=== PATIENT | female | born 1985 | race Two or more races ===

== ENCOUNTER 2020-08-10 17:02 | Inpatient (IN) | payer MEDICAID ==
[~2020-08-10] VITALS: Ht 165.1 cm; Wt 95.5 kg
[~2020-08-10 17:02] MED LIST: MORPHINE SULFATE 4 MG/ML VIAL. IV PRN
[2020-08-10 17:22] LABS: BILIRUBIN,URINE NEGATIVE (NEG); CLARITY,URINE CLEAR; COLOR,URINE YELLOW; NITRITE,URINE NEGATIVE (NEG); PROTEIN,URINE NEGATIVE (NEG-TRACE); UROBILINOGEN,URINE 0.2 mg/dL (0.2 mg/dL)
[2020-08-10 17:34] LABS: BACTERIA,URINE MODERATE /HPF (0-FEW)
[2020-08-10 17:41] LABS: BASO % 1 % (0-3); EOS # 0.1 x10^3/uL (0.0-0.7); EOS % 1 % (0-3); HEMATOCRIT 37.6 % (36.0-47.0); HEMOGLOBIN 12.5 g/dL (12.0-15.5); LYMPH # 2.2 x10^3/uL (1.0-4.8); LYMPH % 30 % (24-48); MEAN CORPUSCULAR HEMOGLOBIN 27 pg (25-35); MEAN CORPUSCULAR HGB CONC 33 g/dL (31-37); MEAN CORPUSCULAR VOLUME 82 fL (79-100); MONO # 0.4 x10^3/uL (0.0-1.1); MONO % 5 % (0-9); NEUT # 4.5 x10^3/uL (1.8-7.7); NEUT % 63 % (31-73); PLATELET COUNT 300 x10^3/uL (140-400); RED BLOOD COUNT 4.61 x10^6/uL (3.50-5.40); RED CELL DISTRIBUTION WIDTH 13.3 % (11.5-14.5); WHITE BLOOD COUNT 7.2 x10^3/uL (4.0-11.0)
--- NOTE | 2020-08-10 17:42 | PHYS DOC ---
General Adult EDM: Chief Complaint: ABDOMINAL PAIN HPI: HPI: Patient is a 35 year old female who presents with right upper quadrant burning throbbing type pain that wraps around to her back since this past Monday. She states that her pain is an 8 out of 10 at this time. He states that when she takes a deep breath that she has pain in that epigastric area which would make her short of breath sometimes. She states that it only she vomited up green bile and with bitter tasting. She states since then she has been eating and drinking appropriately. She states that her appetite is less than because she is not hungry. She states today she ate a couple small apples and that was all. She denies anything making her pain worse or better. She states she has had gastritis in the past and has been taking Protonix. Patient denies any surgeries or past medical history other than gastritis. She states she does not smoke, drink alcohol or do any drugs. Patient denies chest pain, diarrhea, constipation, fever, chills, body aches, cough, nasal congestion, urinary symptoms, headache, dizziness, focal weakness, numbness or tingling. Review of Systems: Review of Systems: Constitutional: Denies fever or chills. [] Eyes: Denies change in visual acuity. [] HENT: Denies nasal congestion or sore throat. [] Respiratory: Denies cough. + Pain causing shortness of breath. [] Cardiovascular: Denies chest pain or edema. [] GI: + abdominal pain, +nausea, +vomiting, denies bloody stools or diarrhea. [] : Denies dysuria. [] Musculoskeletal: + Right back pain or denies joint pain. [] Integument: Denies rash. [] Neurologic: Denies headache, focal weakness or sensory changes. [] Endocrine: Denies polyuria or polydipsia. [] Lymphatic: Denies swollen glands. [] Psychiatric: Denies depression or anxiety. [] Heart Score: Risk Factors: Risk Factors: DM, Current or recent (<one month) smoker, HTN, HLP, family history of CAD, obesity. Risk Scores: Score 0 - 3: 2.5% MACE over next 6 weeks - Discharge Home Score 4 - 6: 20.3% MACE over next 6 weeks - Admit for Clinical Observation Score 7 - 10: 72.7% MACE over next 6 weeks - Early Invasive Strategies Current Medications: Current Medications Medications (Trade) Dose Ordered Sig/Monet Start Time Stop Time Status Last Admin Dose Admin Famotidine (Pepcid Vial) 20 mg 1X ONCE 08/10/20 17:45 08/10/20 17:46 UNV Fentanyl Citrate (Fentanyl 2ml Vial) 50 mcg 1X ONCE 08/10/20 17:45 08/10/20 17:46 UNV Ondansetron HCl (Zofran) 4 mg 1X ONCE 08/10/20 17:45 08/10/20 17:46 UNV Sodium Chloride 1,000 ml @ 1,000 mls/hr Q1H 08/10/20 17:45 08/10/20 18:44 UNV Allergies: Allergies: Allergies Coded Allergies Type Severity Reaction Last Updated Verified iodine Allergy Unknown 08/10/20 Yes Physical Exam: PE: Constitutional: Well developed, well nourished, no acute distress, non-toxic appearance. [] HENT: Normocephalic, atraumatic, bilateral external ears normal, oropharynx moist, no oral exudates, nose normal. [] Eyes: PERRLA, EOMI, conjunctiva normal, no discharge. [] Neck: Normal range of motion, no tenderness, supple, no stridor. [] Cardiovascular:Heart rate regular rhythm, no murmur [] Lungs & Thorax: Bilateral breath sounds clear to auscultation [] Abdomen: Bowel sounds normal, soft, epigastric and right upper quadrant tendern ess, no masses, no pulsatile masses. [] Skin: Warm, dry, no erythema, no rash. [] Back: No tenderness, no CVA tenderness. [] Extremities: No tenderness, no cyanosis, no clubbing, ROM intact, no edema. [] Neurologic: Alert and oriented X 3, normal motor function, normal sensory function, no focal deficits noted. [] Psychologic: Affect normal, judgement normal, mood normal. [] Current Patient Data: Labs: Laboratory Tests Test 08/10/20 17:16 08/10/20 17:17 Urine Collection Type Unknown Urine Color Yellow Urine Clarity Clear Urine pH 6.0 (<5.0-8.0) Urine Specific [place] 1.020 (1.000-1.030) Urine Protein Negative mg/dL (NEG-TRACE) Urine Glucose (UA) Negative mg/dL (NEG) Urine Ketones (Stick) Negative mg/dL (NEG) Urine Blood Negative (NEG) Urine Nitrite Negative (NEG) Urine Bilirubin Negative (NEG) Urine Urobilinogen Dipstick 0.2 mg/dL (0.2 mg/dL) Urine Leukocyte Esterase Small (NEG) Urine RBC 1-2 /HPF (0-2) Urine WBC 5-10 /HPF (0-4) Urine Squamous Epithelial Cells Mod /LPF Urine Bacteria Moderate /HPF (0-FEW) Urine Mucus Marked /LPF POC Urine HCG, Qualitative Hcg negative (Negative) EKG: EKG: [] Radiology/Procedures: Radiology/Procedures: [] Impression: [address] [address] IMAGING REPORT Signed PATIENT: ENOCH MULLEN AACCOUNT: [id number] : 1985 LOCATION: ER AGE: 35 SEX: F EXAM STATUS: REG ER ORD. PHYSICIAN: VIDA ELLSWORTH APRN REASON: SOA PROCEDURE: PORTABLE CHEST 1V Chest AP portable at 1743: Reason for examination: Short of breath. The heart size is normal. Mediastinum is unremarkable. Lung angelo are clear. No acute bony abnormalities are seen. Impression: No acute cardiopulmonary disease. Electronically signed by: Madelin Olson MD (08/10/2020 5:47 PM) [facility] DICTATED and SIGNED BY: MADELIN OLSON MD DATE: 08/10/20 [id number] [address] IMAGING REPORT Signed PATIENT: ENOCH MULLEN AACCOUNT: [id number] : 1985 LOCATION: ER AGE: 35 SEX: F EXAM STATUS: REG ER ORD. PHYSICIAN: VIDA ELLSWORTH APRN REASON: VOMITING, UPPER ABD PAIN THAT WRAPS AROUND TO BACK PROCEDURE: CT ABDOMEN PELVIS WO CONTRAST EXAM: CT Abdomen and Pelvis without IV contrast CLINICAL HISTORY: VOMITING, UPPER ABD PAIN THAT WRAPS AROUND TO BACK COMPARISON: none TECHNIQUE: Helical CT of the abdomen and pelvis without intravenous contrast. Axial, coronal and sagittal reformatted images were generated. PQRS compliance statement - One or more of the following individualized dose reduction techniques were utilized for this study: 1. Automated exposure control 2. Adjustment of the mA and/or kV according to patient size 3. Use of iterative reconstruction technique FINDINGS: Lack of intravenous contrast limits evaluation of solid organs, vasculature, and lymph nodes. Lower chest: Lung bases are clear. Abdomen and Pelvis: No focal liver lesion. There is gallbladder wall thickening with pericholecystic infiltration and calcified gallstones suspicious for acute cholecystitis. No biliary ductal dilatation. Spleen is unremarkable. Adrenal glands and pancreas are unremarkable. Punctate nonobstructing right lower pole renal calculus. No focal renal lesion. No hydronephrosis. IUD is seen within the uterus. Uterus and adnexa are otherwise grossly unremarkable. Appendix is normal. No small or large bowel dilatation. Moderate colonic stool content. No abdominal or pelvic ascites. No abdominal or pelvic lymphadenopathy. Bones: No aggressive osseous lesion is seen. IMPRESSION: 1. Cholelithiasis with gallbladder wall thickening and pericholecystic infiltration suspicious for acute cholecystitis. 2. Punctate nonobstructing right lower pole renal calculus. 3. No bowel obstruction. No ascites. Electronically signed by: Natan Espinoza MD (08/10/2020 6:13 PM) [facility] DICTATED and SIGNED BY: NATAN ESPINOZA MD DATE: 08/10/20 [id number] 0 [facility] [address] [place] [address] IMAGING REPORT Signed PATIENT: ENOCH MULLEN AACCOUNT: [id number] : 1985 LOCATION: [address] [place] [address] AGE: 35 SEX: F EXAM STATUS: ADM IN ORD. PHYSICIAN: VIDA ELLSWORTH APRN REASON: GALL BLADDER, ABNORMAL CT PROCEDURE: ABDOMEN LTD Abdominal ultrasound Limited: Reason for examination: Right upper quadrant pain with abnormal gallbladder on CT examination. Pancreas is poorly visualized. The liver shows bile fatty infiltration without definite focal lesion seen and measures 16.2 cm in greatest dimension. Gallbladder shows cholelithiasis with wall thickening measuring up to 4.6 mm. There is a small amount of pericholecystic fluid present and positive [place] sign. Common bile duct measures 6.7 mm diameter. Right kidney measures 12 x 4.8 x 4.7 cm in greatest dimension with good cortical medullary differentiation and there appear to be nonobstructing renal calculi present. No abnormality seen at the inferior vena cava. IMPRESSION: Cholelithiasis with gallbladder wall thickening, pericholecystic fluid and positive [place] sign. Common bile duct is upper normal at 6.7 mm. Nonobstructing calculi in the right kidney. Electronically signed by: Madelin Olson MD (08/10/2020 7:30 PM) [facility] Course & Med Decision Making: Course & Med Decision Making Pertinent Labs and Imaging studies reviewed. (See chart for details) See HPI. Alert and oriented x4. Speaks in full clear sentences. Abdomen is soft but tender to the epigastric and right upper abdomen area. No CVA tenderness. Skin pink warm and dry. Ambulatory with a steady gait. Afebrile. I have spoken to Dr Aden concerning this patient and CT/ US findings. Patient is started on Ancef and Flagyl. A rapid Covid is done on her. She is admitted to Dr. Benitez. [] Odilia Disclaimer: Odilia Disclaimer: This electronic medical record was generated, in whole or in part, using a voice recognition dictation system. Departure Departure Impression: Primary Impression: Cholecystitis Disposition: ADMITTED INPT THIS HOSP Admitting Physician: YORDY Condition: STABLE Referrals: NO PCP (PCP) VIDA ELLSWORTH APRN Aug 10, 2020 17:42
[2020-08-10] MEDS ORDERED: fentaNYL PF VIAL 100 MCG/2 ML VIAL IVP ONE (17:45)
[2020-08-10] MEDS ORDERED: FAMOTIDINE 20 MG/2 ML VIAL IVP ONE (17:45)
[2020-08-10] MEDS ORDERED: ONDANSETRON PF 4 MG/2 ML VIAL. IVP ONE (17:45)
[2020-08-10] MEDS ORDERED: IV NORMAL SALINE 1000ML BAG 1,000 ML IV SCH (17:45)
[2020-08-10 17:49] LABS: CALCIUM 9.8 mg/dL (8.5-10.1); CREATININE 0.7 mg/dL (0.6-1.0); GFR 96.4; POTASSIUM 3.5 mmol/L (3.5-5.1)
--- NOTE | 2020-08-10 17:50 | RAD ---
Chest AP portable at 1743: Reason for examination: Short of breath. The heart size is normal. Mediastinum is unremarkable. Lung angelo are clear. No acute bony abnormali ties are seen. Impression: No acute cardiopulmonary disease. Electronically signed by: Aurea Alvarez MD (08/10/2020 5:47 PM) [facility]
[2020-08-10 17:55] LABS: ALBUMIN/GLOBULIN RATIO 0.9 (1.0-1.7); TOTAL BILIRUBIN 0.3 mg/dL (0.2-1.0); TOTAL PROTEIN 8.3 g/dL (6.4-8.2)
--- NOTE | 2020-08-10 18:15 | RAD ---
EXAM: CT Abdomen and Pelvis without IV contrast CLINICAL HISTORY: VOMITING, UPPER ABD PAIN THAT WRAPS AROUND TO BACK COMPARISON: none TECHNIQUE: Helical CT of the abdomen and pelvis without intravenous contrast. Axial, coronal and sagi ttal reformatted images were generated. PQRS compliance statement - One or more of the following individualized dose reduction techniques wer e utilized for this study: 1. Automated exposure control 2. Adjustment of the mA and/or kV according to patient size 3. Use of iterative reconstruction technique FINDINGS: Lack of intravenous contrast limits evaluation of solid organs, vasculature, and lymph nodes. Lower chest: Lung bases are clear. Abdomen and Pelvis: No focal liver lesion. There is gallbladder wall thickening with pericholecystic infiltration and can cified gallstones suspicious for acute cholecystitis. No biliary ductal dilatation. Spleen is unremar kable. Adrenal glands and pancreas are unremarkable. Punctate nonobstructing right lower pole renal calculus. No focal renal lesion. No hydronephrosis. IUD is seen within the uterus. Uterus and adnexa are otherwise grossly unremarkable. Appendix is normal. No small or large bowel dilatation. Moderate colonic stool content. No abdominal or pelvic ascites. No abdominal or pelvic lymphadenopathy. Bones: No aggressive osseous lesion is seen. IMPRESSION: 1. Cholelithiasis with gallbladder wall thickening and pericholecystic infiltration suspicious for a cute cholecystitis. 2. Punctate nonobstructing right lower pole renal calculus. 3. No bowel obstruction. No ascites. Electronically signed by: Natan Hicks MD (08/10/2020 6:13 PM) [facility]
--- NOTE | 2020-08-10 18:38 | PDOC1 ---
History and Physical Date of Service: DOS: DATE: 08/10/20 TIME: 18:34 Chief Complaint: Chief Complain: ABD PAIN History of Present Illness: HPI: 35 year old female who presents with right upper quadrant burning throbbing type pain that wraps around to her back since this past Monday. She states that her pain is an 8 out of 10 at this time. He states that when she takes a deep breath that she has pain in that epigastric area which would make her short of breath sometimes. She states that it only she vomited up green bile and with bitter tasting. She states since then she has been eating and drinking appropriately. She states that her appetite is less than because she is not hungry. She states today she ate a couple small apples and that was all. She denies anything making her pain worse or better. She states she has had gastritis in the past and has been taking Protonix. Patient denies any surgeries or past medical history other than gastritis. She states she does not smoke, drink alcohol or do any drugs. Patient denies chest pain, diarrhea, constipation, fever, chills, body aches, cough, nasal congestion, urinary symptoms, headache, dizziness, focal weakness, numbness or tingling. Past Medical/Surgical History: PMH/PSH: No surgical or medical Hx Allergies: Allergies: Coded Allergies: iodine (Verified Allergy, Intermediate, 08/10/20) Family History: Family History: Reviewed with no relevant findings Social History: Social History: Denies EtOH, tobacco, or drug abuse. Current Medications: Current Medications Current Medications Sodium Chloride 1,000 ml @ 1,000 mls/hr Q1H IV Last administered on 08/10/20at 17:49; Start 08/10/20 at 17:45; Stop 08/10/20 at 18:44 Fentanyl Citrate (Fentanyl 2ml Vial) 50 mcg 1X ONCE IVP Last administered on 08/10/20at 17:49; Start 08/10/20 at 17:45; Stop 08/10/20 at 17:46; Status DC Ondansetron HCl (Zofran) 4 mg 1X ONCE IVP Last administered on 08/10/20at 17:49; Start 08/10/20 at 17:45; Stop 08/10/20 at 17:46; Status DC Famotidine (Pepcid Vial) 20 mg 1X ONCE IVP Last administered on 08/10/20at 17:49; Start 08/10/20 at 17:45; Stop 08/10/20 at 17:46; Status DC Cefazolin Sodium/ Dextrose 50 ml @ 100 mls/hr 1X ONCE IV ; Start 08/10/20 at 18:30; Stop 08/10/20 at 18:59 Metronidazole 100 ml @ 100 mls/hr 1X ONCE IV ; Start 08/10/20 at 18:30; Stop 08/10/20 at 19:29 ROS: Review of Systems Review of System REVIEW OF SYSTEMS: GENERAL: Denies weakness SKIN: No bruising, hair changes or rashes. EYES: No blurred, double or loss of vision. NOSE AND THROAT: No history of nosebleeds, hoarseness or sore throat. HEART: No history of palpitations, chest pain or shortness of breath on exertion. LUNGS: Denies cough, hemoptysis, wheezing or shortness of breath. GASTROINTESTINAL: Denies changes in appetite, nausea, vomiting, diarrhea or constipation. GENITOURINARY: No history of frequency, urgency, hesitancy or nocturia. NEUROLOGIC: Denies history of numbness, tingling, or tremor. PSYCHIATRIC: No history of panic, anxiety or depression. ENDOCRINE: No history of heat or cold intolerance, polyuria or polydipsia. EXTREMITIES: Denies joint pain, pain on walking or stiffness. Physical Exam: Vital Signs: Vital Signs Date Time Temp Pulse Resp B/P (MAP) Pulse Ox O2 Delivery O2 Flow Rate FiO2 08/10/20 17:49 16 98 08/10/20 17:36 99.2 88 133/73 (93) Room Air 99.2 Physcial Exam: GEN: No apparent distress. Alert and oriented HEENT: Normal cephalic, atraumatic, external auditory canals are patent EYES: Extraocular muscles are intact, pupil are equally round and reactive to light and accommodation MUSCULOSKELETAL: Well developed , well nourished, good range of motion ENDOCRINE: No thyromegaly was palpated LYMPHATICS: No cervical chain or axillary nodes were noted HEMATOPOIETIC: No bruising NECK: Supple, no JVD, no thyromegaly was noted LUNGS: Clear to auscultation in all lung angelo without rhonchi or wheezing HEART: RRR, S!, S2 present. Peripheral pulses intact, no obvious murmurs noted ABDOMEN: Soft, RUQ tenderness. Positive agosto's sign. Positive bowel sounds, no organomegaly, normal bowel sounds EXTREMITIES: Without clubbing, cyanosis, or edema. Pedal pulses intact. Negative Homans sign NEUROLOGIC: Normal speech and tone. A&O x 3, moves all extremities, no obvious focal deficits PSYCHIATRIC: Normal affect, normal mood. Stable SKIN: No ulcerations or rashes, good skin turgor, no jaundice VASCULAR: Good capillary refill, neurovascular bundle appears to be intact Labs: Labs: Laboratory Tests Test 08/10/20 17:16 08/10/20 17:17 08/10/20 17:30 Urine Collection Type Unknown Urine Color Yellow Urine Clarity Clear Urine pH 6.0 (<5.0-8.0) Urine Specific [place] 1.020 (1.000-1.030) Urine Protein Negative mg/dL (NEG-TRACE) Urine Glucose (UA) Negative mg/dL (NEG) Urine Ketones (Stick) Negative mg/dL (NEG) Urine Blood Negative (NEG) Urine Nitrite Negative (NEG) Urine Bilirubin Negative (NEG) Urine Urobilinogen Dipstick 0.2 mg/dL (0.2 mg/dL) Urine Leukocyte Esterase Small (NEG) Urine RBC 1-2 /HPF (0-2) Urine WBC 5-10 /HPF (0-4) Urine Squamous Epithelial Cells Mod /LPF Urine Bacteria Moderate /HPF (0-FEW) Urine Mucus Marked /LPF Bedside Urine HCG, Qualitative Hcg negative (Negative) White Blood Count 7.2 x10^3/uL (4.0-11.0) Red Blood Count 4.61 x10^6/uL (3.50-5.40) Hemoglobin 12.5 g/dL (12.0-15.5) Hematocrit 37.6 % (36.0-47.0) Mean Corpuscular Volume 82 fL (79-100) Mean Corpuscular Hemoglobin 27 pg (25-35) Mean Corpuscular Hemoglobin Concent 33 g/dL (31-37) Red Cell Distribution Width 13.3 % (11.5-14.5) Platelet Count 300 x10^3/uL (140-400) Neutrophils (%) (Auto) 63 % (31-73) Lymphocytes (%) (Auto) 30 % (24-48) Monocytes (%) (Auto) 5 % (0-9) Eosinophils (%) (Auto) 1 % (0-3) Basophils (%) (Auto) 1 % (0-3) Neutrophils # (Auto) 4.5 x10^3/uL (1.8-7.7) Lymphocytes # (Auto) 2.2 x10^3/uL (1.0-4.8) Monocytes # (Auto) 0.4 x10^3/uL (0.0-1.1) Eosinophils # (Auto) 0.1 x10^3/uL (0.0-0.7) Basophils # (Auto) 0.0 x10^3/uL (0.0-0.2) Sodium Level 140 mmol/L (136-145) Potassium Level 3.5 mmol/L (3.5-5.1) Chloride Level 104 mmol/L (98-107) Carbon Dioxide Level 28 mmol/L (21-32) Anion Gap 8 (6-14) Blood Urea Nitrogen 9 mg/dL (7-20) Creatinine 0.7 mg/dL (0.6-1.0) Estimated GFR (Cockcroft-Gault) 96.4 BUN/Creatinine Ratio 13 (6-20) Glucose Level 87 mg/dL (70-99) Calcium Level 9.8 mg/dL (8.5-10.1) Total Bilirubin 0.3 mg/dL (0.2-1.0) Aspartate Amino Transf (AST/SGOT) 26 U/L (15-37) Alanine Aminotransferase (ALT/SGPT) 55 U/L (14-59) Alkaline Phosphatase 88 U/L (46-116) Total Protein 8.3 g/dL (6.4-8.2) Albumin 4.0 g/dL (3.4-5.0) Albumin/Globulin Ratio 0.9 (1.0-1.7) Lipase 135 U/L (73-393) Laboratory Tests Test 08/10/20 17:16 08/10/20 17:17 08/10/20 17:30 Urine Collection Type Unknown Urine Color Yellow Urine Clarity Clear Urine pH 6.0 (<5.0-8.0) Urine Specific [place] 1.020 (1.000-1.030) Urine Protein Negative mg/dL (NEG-TRACE) Urine Glucose (UA) Negative mg/dL (NEG) Urine Ketones (Stick) Negative mg/dL (NEG) Urine Blood Negative (NEG) Urine Nitrite Negative (NEG) Urine Bilirubin Negative (NEG) Urine Urobilinogen Dipstick 0.2 mg/dL (0.2 mg/dL) Urine Leukocyte Esterase Small (NEG) Urine RBC 1-2 /HPF (0-2) Urine WBC 5-10 /HPF (0-4) Urine Squamous Epithelial Cells Mod /LPF Urine Bacteria Moderate /HPF (0-FEW) Urine Mucus Marked /LPF Bedside Urine HCG, Qualitative Hcg negative (Negative) White Blood Count 7.2 x10^3/uL (4.0-11.0) Red Blood Count 4.61 x10^6/uL (3.50-5.40) Hemoglobin 12.5 g/dL (12.0-15.5) Hematocrit 37.6 % (36.0-47.0) Mean Corpuscular Volume 82 fL (79-100) Mean Corpuscular Hemoglobin 27 pg (25-35) Mean Corpuscular Hemoglobin Concent 33 g/dL (31-37) Red Cell Distribution Width 13.3 % (11.5-14.5) Platelet Count 300 x10^3/uL (140-400) Neutrophils (%) (Auto) 63 % (31-73) Lymphocytes (%) (Auto) 30 % (24-48) Monocytes (%) (Auto) 5 % (0-9) Eosinophils (%) (Auto) 1 % (0-3) Basophils (%) (Auto) 1 % (0-3) Neutrophils # (Auto) 4.5 x10^3/uL (1.8-7.7) Lymphocytes # (Auto) 2.2 x10^3/uL (1.0-4.8) Monocytes # (Auto) 0.4 x10^3/uL (0.0-1.1) Eosinophils # (Auto) 0.1 x10^3/uL (0.0-0.7) Basophils # (Auto) 0.0 x10^3/uL (0.0-0.2) Sodium Level 140 mmol/L (136-145) Potassium Level 3.5 mmol/L (3.5-5.1) Chloride Level 104 mmol/L (98-107) Carbon Dioxide Level 28 mmol/L (21-32) Anion Gap 8 (6-14) Blood Urea Nitrogen 9 mg/dL (7-20) Creatinine 0.7 mg/dL (0.6-1.0) Estimated GFR (Cockcroft-Gault) 96.4 BUN/Creatinine Ratio 13 (6-20) Glucose Level 87 mg/dL (70-99) Calcium Level 9.8 mg/dL (8.5-10.1) Total Bilirubin 0.3 mg/dL (0.2-1.0) Aspartate Amino Transf (AST/SGOT) 26 U/L (15-37) Alanine Aminotransferase (ALT/SGPT) 55 U/L (14-59) Alkaline Phosphatase 88 U/L (46-116) Total Protein 8.3 g/dL (6.4-8.2) Albumin 4.0 g/dL (3.4-5.0) Albumin/Globulin Ratio 0.9 (1.0-1.7) Lipase 135 U/L (73-393) Images: Images CT ABD/PELVIS IMPRESSION: 1. Cholelithiasis with gallbladder wall thickening and pericholecystic infiltration suspicious for acute cholecystitis. 2. Punctate nonobstructing right lower pole renal calculus. 3. No bowel obstruction. No ascites. Assessment/Plan Assessment/Plan Acute ABD pain due to possible cholecystitis Admit to medicine for further management Surgery consult Pending ABD US NPO Continue IVF continue IV empiric Abx Lovenox for DVt prophylaxis DPOA Justifications for Admission Other Justification SHAKIRA MOSCOSO MD Aug 10, 2020 18:38
[2020-08-10] MEDS ORDERED: ONDANSETRON PF 4 MG/2 ML VIAL. IV PRN (18:45)
[2020-08-10] MEDS ORDERED: fentaNYL PF VIAL 100 MCG/2 ML VIAL IV PRN (18:45)
[2020-08-10] MEDS ORDERED: MORPHINE SULFATE 2 MG/ML VIAL. IV PRN (19:00)
[2020-08-10] MEDS ORDERED: SENNOSIDES 8.6 MG TABLET PO PRN (19:00)
[2020-08-10] MEDS ORDERED: ENOXAPARIN 40 MG/0.4 ML SYRINGE. SQ SCH (19:00)
[2020-08-10] MEDS ORDERED: DEXTROSE 50% 25 GM / 50ML DISP.SYRIN. IV PRN (19:00)
[2020-08-10] MEDS ORDERED: ACETAMINOPHEN 325 MG TABLET. PO PRN (19:00)
[2020-08-10] MEDS ORDERED: DOCUSATE SODIUM 100 MG CAPSULE. PO PRN (19:00)
--- NOTE | 2020-08-10 19:32 | RAD ---
Abdominal ultrasound Limited: Reason for examination: Right upper quadrant pain with abnormal gallbladder on CT examination. Pancreas is poorly visualized. The liver shows bile fatty infiltration without definite focal lesion seen and measures 16.2 cm in greatest dimension. Gallbladder shows cholelithiasis with wall thickenin g measuring up to 4.6 mm. There is a small amount of pericholecystic fluid present and positive Jim y sign. Common bile duct measures 6.7 mm diameter. Right kidney measures 12 x 4.8 x 4.7 cm in greates t dimension with good cortical medullary differentiation and there appear to be nonobstructing renal calculi present. No abnormality seen at the inferior vena cava. IMPRESSION: Cholelithiasis with gallbladder wall thickening, pericholecystic fluid and positive [place] sign. Common bile duct is upper normal at 6.7 mm. Nonobstructing calculi in the right kidney. Electronically signed by: Aurea Alvarez MD (08/10/2020 7:30 PM) JOSE [facility]FREDO
[2020-08-10 19:54] VITALS: BP 113/75
--- NOTE | 2020-08-10 20:04 | NUR ---
The patient, ENOCH MULLEN, 35 y/o, F admitted by SHAKIRA MOSCOSO MD, arrived on unit at 1930 by bed from ED. Pt. states her pain is 6/10 at this time. call light within reach and bed in lowest position. Will continue to monitor.
[2020-08-10] MEDS: IV NORMAL SALINE 1000ML BAG 1,000 ML IV SCH (21:09)
--- NOTE | 2020-08-10 23:21 | NUR ---
RN administered Flagyl this evening after originally hitting "non-administered." RN spoke to pharmacy and medication was sent up and given.
[2020-08-10 23:30] VITALS: BP 112/72
[2020-08-11] MEDS: IV NORMAL SALINE 1000ML BAG 1,000 ML IV SCH ×2 (02:45→10:45)
[2020-08-11 02:59] VITALS: BP 104/56
[2020-08-11] MEDS: ONDANSETRON PF 4 MG/2 ML VIAL. IVP PRN (04:10)
[2020-08-11 07:00] VITALS: BP 114/80
[2020-08-11 08:33] LABS: BASO % 0 % (0-3); EOS % 0 % (0-3); HEMATOCRIT 36.5 % (36.0-47.0); HEMOGLOBIN 12.1 g/dL (12.0-15.5); LYMPH # 1.1 x10^3/uL (1.0-4.8); LYMPH % 17 % (24-48); MEAN CORPUSCULAR HEMOGLOBIN 27 pg (25-35); MEAN CORPUSCULAR HGB CONC 33 g/dL (31-37); MEAN CORPUSCULAR VOLUME 82 fL (79-100); MONO # 0.2 x10^3/uL (0.0-1.1); MONO % 3 % (0-9); NEUT # 5.4 x10^3/uL (1.8-7.7); NEUT % 80 % (31-73); PLATELET COUNT 295 x10^3/uL (140-400); RED BLOOD COUNT 4.47 x10^6/uL (3.50-5.40); RED CELL DISTRIBUTION WIDTH 13.4 % (11.5-14.5); WHITE BLOOD COUNT 6.8 x10^3/uL (4.0-11.0)
[2020-08-11 09:09] LABS: CALCIUM 9.1 mg/dL (8.5-10.1); CREATININE 0.6 mg/dL (0.6-1.0); GFR 115.1; MAGNESIUM 2.2 mg/dL (1.8-2.4); PHOSPHORUS 3.4 mg/dL (2.6-4.7); POTASSIUM 3.5 mmol/L (3.5-5.1)
--- NOTE | 2020-08-11 09:32 | PDOC2 ---
ALLEN ARMAS COUNCILOR 08/11/20 0932: CONSULT Date of Consult Date of Consult DATE: 08/11/20 TIME: 09:28 Reason for Consult Reason for Consult: cholecystitis Referring Physician Referring Physician: ER Identification/Chief Complaint Chief Complaint abdominal pain Source Source: Chart review, Patient History of Present Illness Reason for Visit: 10 days of upper abdominal pain, epigastric, RUQ, associated nausea and emesis. Eating does seem to aggravate. Some constipation Past Medical History Past Medical History obesity Psych: Anxiety Past Surgical History Past Surgical History: No pertinent history Family History Family History: Other (noncontributory to current illness ) Social History No ALCOHOL: none Drugs: None Lives: with Family Current Problem List Problem List Problems Medical Problems: (1) Cholecystitis Status: Acute Current Medications Current Medications Current Medications Sodium Chloride 1,000 ml @ 1,000 mls/hr Q1H IV Last administered on 08/10/20at 17:49; Start 08/10/20 at 17:45; Stop 08/10/20 at 18:44; Status DC Fentanyl Citrate (Fentanyl 2ml Vial) 50 mcg 1X ONCE IVP Last administered on 08/10/20at 17:49; Start 08/10/20 at 17:45; Stop 08/10/20 at 17:46; Status DC Ondansetron HCl (Zofran) 4 mg 1X ONCE IVP Last administered on 08/10/20at 17:49; Start 08/10/20 at 17:45; Stop 08/10/20 at 17:46; Status DC Famotidine (Pepcid Vial) 20 mg 1X ONCE IVP Last administered on 08/10/20at 17:49; Start 08/10/20 at 17:45; Stop 08/10/20 at 17:46; Status DC Cefazolin Sodium/ Dextrose 50 ml @ 100 mls/hr 1X ONCE IV Last administered on 08/10/20at 18:46; Start 08/10/20 at 18:30; Stop 08/10/20 at 18:59; Status DC Metronidazole 100 ml @ 100 mls/hr 1X ONCE IV ; Start 08/10/20 at 18:30; Stop 08/10/20 at 19:29; Status DC Ondansetron HCl (Zofran) 4 mg PRN Q8HRS PRN IV NAUSEA/VOMITING; Start 08/10/20 at 18:45; Stop 08/11/20 at 18:44 Fentanyl Citrate (Fentanyl 2ml Vial) 50 mcg PRN Q1HR PRN IV PAIN; Start 08/10/20 at 18:45; Stop 08/11/20 at 18:44 Sodium Chloride 1,000 ml @ 125 mls/hr Q8H IV Last administered on 08/11/20at 02:45; Start 08/10/20 at 18:45; Stop 08/11/20 at 18:44 Sennosides (Senna) 17.2 mg PRN BID PRN PO CONSTIPATION; Start 08/10/20 at 19:00 Docusate Sodium (Colace) 100 mg PRN DAILY PRN PO HARD STOOLS; Start 08/10/20 at 19:00 Ondansetron HCl (Zofran) 4 mg PRN Q6HRS PRN IVP NAUSEA/VOMITING Last adm inistered on 08/11/20at 04:10; Start 08/10/20 at 19:00 Dextrose (Dextrose 50%-Water Syringe) 12.5 gm PRN Q15MIN PRN IV SEE COMMENTS; Start 08/10/20 at 19:00 Acetaminophen (Tylenol) 650 mg PRN Q4HRS PRN PO TEMP OVER 100.4F OR MILD PAIN; Start 08/10/20 at 19:00 Enoxaparin Sodium (Lovenox 40mg Syringe) 40 mg Q24H SQ Last administered on 08/10/20at 21:09; Start 08/10/20 at 19:00 Morphine Sulfate (Morphine Sulfate) 1 mg PRN Q1HR PRN IV PAIN-SEE COMMENTS; Start 08/10/20 at 19:00 Morphine Sulfate (Morphine Sulfate) 2 mg PRN Q2HR PRN IV SEVERE PAIN 7-10 Last administered on 08/10/20at 23:18; Start 08/10/20 at 04:00; Stop 08/11/20 at 03:59 ; Status DC Active Scripts Active Reported No Known Medications Prior To Admisstion (Info) Each 1 Each MC 1-2XD Allergies Allergies: Coded Allergies: iodine (Verified Allergy, Intermediate, 08/10/20) ROS General: No: Chills, Other (fevers ) PSYCHOLOGICAL ROS: No: Anxiety, Depression Eyes: No Blurry vision, No Double vision HEENT: No: Heacaches, Sore Throat Hematological and Lymphatic: No: Bleeding Problems, Blood Clots Respiratory: No: Cough, SOB with excertion Cardiovascular: No Chest Pain, No Palpitations Gastrointestinal: Yes Other (see hpi) Genitourinary: No Dysuria, No Retention Musculoskeletal: No Joint Pain, No Muscle Pain Neurological: No Impaired Coord/balance, No Numbness/Tingling Skin: No Pruritus, No Rash Physical Exam General: Alert, Oriented X3, Cooperative HEENT: Atraumatic, PERRLA Lungs: Clear to auscultation, Normal air movement Heart: Regular rate, Normal S1, Normal S2 Abdomen: Soft, Other (TTP RUQ and epigastric ) Extremities: No clubbing, No cyanosis Skin: No rashes, No breakdown Neuro: Normal gait, Normal speech Psych/Mental Status: Mental status NL, Mood NL MUSCULOSKELETAL: No deformity, No swelling Vitals VITALS Vital Signs Date Time Temp Pulse Resp B/P (MAP) Pulse Ox O2 Delivery O2 Flow Rate FiO2 08/11/20 07:00 98.3 88 16 114/80 (91) 98 Room Air 98.3 Labs Labs Laboratory Tests Test 08/10/20 17:16 08/10/20 17:17 08/10/20 17:30 08/10/20 18:50 Urine Collection Type Unknown Urine Color Yellow Urine Clarity Clear Urine pH 6.0 (<5.0-8.0) Urine Specific [place] 1.020 (1.000-1.030) Urine Protein Negative mg/dL (NEG-TRACE) Urine Glucose (UA) Negative mg/dL (NEG) Urine Ketones (Stick) Negative mg/dL (NEG) Urine Blood Negative (NEG) Urine Nitrite Negative (NEG) Urine Bilirubin Negative (NEG) Urine Urobilinogen Dipstick 0.2 mg/dL (0.2 mg/dL) Urine Leukocyte Esterase Small (NEG) Urine RBC 1-2 /HPF (0-2) Urine WBC 5-10 /HPF (0-4) Urine Squamous Epithelial Cells Mod /LPF Urine Bacteria Moderate /HPF (0-FEW) Urine Mucus Marked /LPF Bedside Urine HCG, Qualitative Hcg negative (Negative) White Blood Count 7.2 x10^3/uL (4.0-11.0) Red Blood Count 4.61 x10^6/uL (3.50-5.40) Hemoglobin 12.5 g/dL (12.0-15.5) Hematocrit 37.6 % (36.0-47.0) Mean Corpuscular Volume 82 fL (79-100) Mean Corpuscular Hemoglobin 27 pg (25-35) Mean Corpuscular Hemoglobin Concent 33 g/dL (31-37) Red Cell Distribution Width 13.3 % (11.5-14.5) Platelet Count 300 x10^3/uL (140-400) Neutrophils (%) (Auto) 63 % (31-73) Lymphocytes (%) (Auto) 30 % (24-48) Monocytes (%) (Auto) 5 % (0-9) Eosinophils (%) (Auto) 1 % (0-3) Basophils (%) (Auto) 1 % (0-3) Neutrophils # (Auto) 4.5 x10^3/uL (1.8-7.7) Lymphocytes # (Auto) 2.2 x10^3/uL (1.0-4.8) Monocytes # (Auto) 0.4 x10^3/uL (0.0-1.1) Eosinophils # (Auto) 0.1 x10^3/uL (0.0-0.7) Basophils # (Auto) 0.0 x10^3/uL (0.0-0.2) Sodium Level 140 mmol/L (136-145) Potassium Level 3.5 mmol/L (3.5-5.1) Chloride Level 104 mmol/L (98-107) Carbon Dioxide Level 28 mmol/L (21-32) Anion Gap 8 (6-14) Blood Urea Nitrogen 9 mg/dL (7-20) Creatinine 0.7 mg/dL (0.6-1.0) Estimated GFR (Cockcroft-Gault) 96.4 BUN/Creatinine Ratio 13 (6-20) Glucose Level 87 mg/dL (70-99) Calcium Level 9.8 mg/dL (8.5-10.1) Total Bilirubin 0.3 mg/dL (0.2-1.0) Aspartate Amino Transf (AST/SGOT) 26 U/L (15-37) Alanine Aminotransferase (ALT/SGPT) 55 U/L (14-59) Alkaline Phosphatase 88 U/L (46-116) Total Protein 8.3 g/dL (6.4-8.2) Albumin 4.0 g/dL (3.4-5.0) Albumin/Globulin Ratio 0.9 (1.0-1.7) Lipase 135 U/L (73-393) SARS-CoV-2 Antigen (Rapid) Negative (NEGATIVE) Test 08/11/20 08:10 White Blood Count 6.8 x10^3/uL (4.0-11.0) Red Blood Count 4.47 x10^6/uL (3.50-5.40) Hemoglobin 12.1 g/dL (12.0-15.5) Hematocrit 36.5 % (36.0-47.0) Mean Corpuscular Volume 82 fL (79-100) Mean Corpuscular Hemoglobin 27 pg (25-35) Mean Corpuscular Hemoglobin Concent 33 g/dL (31-37) Red Cell Distribution Width 13.4 % (11.5-14.5) Platelet Count 295 x10^3/uL (140-400) Neutrophils (%) (Auto) 80 % (31-73) Lymphocytes (%) (Auto) 17 % (24-48) Monocytes (%) (Auto) 3 % (0-9) Eosinophils (%) (Auto) 0 % (0-3) Basophils (%) (Auto) 0 % (0-3) Neutrophils # (Auto) 5.4 x10^3/uL (1.8-7.7) Lymphocytes # (Auto) 1.1 x10^3/uL (1.0-4.8) Monocytes # (Auto) 0.2 x10^3/uL (0.0-1.1) Eosinophils # (Auto) 0.0 x10^3/uL (0.0-0.7) Basophils # (Auto) 0.0 x10^3/uL (0.0-0.2) Sodium Level 142 mmol/L (136-145) Potassium Level 3.5 mmol/L (3.5-5.1) Chloride Level 106 mmol/L (98-107) Carbon Dioxide Level 25 mmol/L (21-32) Anion Gap 11 (6-14) Blood Urea Nitrogen 8 mg/dL (7-20) Creatinine 0.6 mg/dL (0.6-1.0) Estimated GFR (Cockcroft-Gault) 115.1 Glucose Level 93 mg/dL (70-99) Calcium Level 9.1 mg/dL (8.5-10.1) Phosphorus Level 3.4 mg/dL (2.6-4.7) Magnesium Level 2.2 mg/dL (1.8-2.4) Laboratory Tests Test 08/10/20 17:16 08/10/20 17:17 08/10/20 17:30 08/10/20 18:50 Urine Collection Type Unknown Urine Color Yellow Urine Clarity Clear Urine pH 6.0 (<5.0-8.0) Urine Specific [place] 1.020 (1.000-1.030) Urine Protein Negative mg/dL (NEG-TRACE) Urine Glucose (UA) Negative mg/dL (NEG) Urine Ketones (Stick) Negative mg/dL (NEG) Urine Blood Negative (NEG) Urine Nitrite Negative (NEG) Urine Bilirubin Negative (NEG) Urine Urobilinogen Dipstick 0.2 mg/dL (0.2 mg/dL) Urine Leukocyte Esterase Small (NEG) Urine RBC 1-2 /HPF (0-2) Urine WBC 5-10 /HPF (0-4) Urine Squamous Epithelial Cells Mod /LPF Urine Bacteria Moderate /HPF (0-FEW) Urine Mucus Marked /LPF Bedside Urine HCG, Qualitative Hcg negative (Negative) White Blood Count 7.2 x10^3/uL (4.0-11.0) Red Blood Count 4.61 x10^6/uL (3.50-5.40) Hemoglobin 12.5 g/dL (12.0-15.5) Hematocrit 37.6 % (36.0-47.0) Mean Corpuscular Volume 82 fL (79-100) Mean Corpuscular Hemoglobin 27 pg (25-35) Mean Corpuscular Hemoglobin Concent 33 g/dL (31-37) Red Cell Distribution Width 13.3 % (11.5-14.5) Platelet Count 300 x10^3/uL (140-400) Neutrophils (%) (Auto) 63 % (31-73) Lymphocytes (%) (Auto) 30 % (24-48) Monocytes (%) (Auto) 5 % (0-9) Eosinophils (%) (Auto) 1 % (0-3) Basophils (%) (Auto) 1 % (0-3) Neutrophils # (Auto) 4.5 x10^3/uL (1.8-7.7) Lymphocytes # (Auto) 2.2 x10^3/uL (1.0-4.8) Monocytes # (Auto) 0.4 x10^3/uL (0.0-1.1) Eosinophils # (Auto) 0.1 x10^3/uL (0.0-0.7) Basophils # (Auto) 0.0 x10^3/uL (0.0-0.2) Sodium Level 140 mmol/L (136-145) Potassium Level 3.5 mmol/L (3.5-5.1) Chloride Level 104 mmol/L (98-107) Carbon Dioxide Level 28 mmol/L (21-32) Anion Gap 8 (6-14) Blood Urea Nitrogen 9 mg/dL (7-20) Creatinine 0.7 mg/dL (0.6-1.0) Estimated GFR (Cockcroft-Gault) 96.4 BUN/Creatinine Ratio 13 (6-20) Glucose Level 87 mg/dL (70-99) Calcium Level 9.8 mg/dL (8.5-10.1) Total Bilirubin 0.3 mg/dL (0.2-1.0) Aspartate Amino Transf (AST/SGOT) 26 U/L (15-37) Alanine Aminotransferase (ALT/SGPT) 55 U/L (14-59) Alkaline Phosphatase 88 U/L (46-116) Total Protein 8.3 g/dL (6.4-8.2) Albumin 4.0 g/dL (3.4-5.0) Albumin/Globulin Ratio 0.9 (1.0-1.7) Lipase 135 U/L (73-393) SARS-CoV-2 Antigen (Rapid) Negative (NEGATIVE) Test 08/11/20 08:10 White Blood Count 6.8 x10^3/uL (4.0-11.0) Red Blood Count 4.47 x10^6/uL (3.50-5.40) Hemoglobin 12.1 g/dL (12.0-15.5) Hematocrit 36.5 % (36.0-47.0) Mean Corpuscular Volume 82 fL (79-100) Mean Corpuscular Hemoglobin 27 pg (25-35) Mean Corpuscular Hemoglobin Concent 33 g/dL (31-37) Red Cell Distribution Width 13.4 % (11.5-14.5) Platelet Count 295 x10^3/uL (140-400) Neutrophils (%) (Auto) 80 % (31-73) Lymphocytes (%) (Auto) 17 % (24-48) Monocytes (%) (Auto) 3 % (0-9) Eosinophils (%) (Auto) 0 % (0-3) Basophils (%) (Auto) 0 % (0-3) Neutrophils # (Auto) 5.4 x10^3/uL (1.8-7.7) Lymphocytes # (Auto) 1.1 x10^3/uL (1.0-4.8) Monocytes # (Auto) 0.2 x10^3/uL (0.0-1.1) Eosinophils # (Auto) 0.0 x10^3/uL (0.0-0.7) Basophils # (Auto) 0.0 x10^3/uL (0.0-0.2) Sodium Level 142 mmol/L (136-145) Potassium Level 3.5 mmol/L (3.5-5.1) Chloride Level 106 mmol/L (98-107) Carbon Dioxide Level 25 mmol/L (21-32) Anion Gap 11 (6-14) Blood Urea Nitrogen 8 mg/dL (7-20) Creatinine 0.6 mg/dL (0.6-1.0) Estimated GFR (Cockcroft-Gault) 115.1 Glucose Level 93 mg/dL (70-99) Calcium Level 9.1 mg/dL (8.5-10.1) Phosphorus Level 3.4 mg/dL (2.6-4.7) Magnesium Level 2.2 mg/dL (1.8-2.4) Assessment/Plan Assessment/Plan cholecystitis abx, plan lap rachelle 08/12 JUAN PABLO LAURENT MD 08/11/20 1112: CONSULT Assessment/Plan Assessment/Plan Patient with abdominal pain right upper quadrant tender to palpation ultrasound showing thickened gallbladder wall with gallstones plan for laparoscopic cholecystectomy agree with Bubba assessment and plan ALLEN ARMAS APRN Aug 11, 2020 09:32 JUAN PABLO LAURENT MD Aug 11, 2020 11:12
--- NOTE | 2020-08-11 09:55 | NUR ---
SW following. Discussed with RN, pt from home with , room air, NPO, rapid COVID-19 negative. Plans for a lap rachelle tomorrow (08/12/20). Med Assist following for self pay status. SW will continue to follow.
[2020-08-11 11:00] VITALS: BP 116/68
--- NOTE | 2020-08-11 11:05 | PDOC ---
[employer] PROGRESS NOTE Date of Service DOS: DATE: 08/11/20 TIME: 11:01 Chief Complaint Chief Complaint Cholecystitis History of Present Illness History of Present Illness 08/11/2020 - Pt seen and examined at bedside - Discussed findings of pt's imaging - Spoke to pt regarding surgery planned for tomorrow - reviewed chart - discussed pt care with RN Vitals/I&O Vitals/I&O: Vital Signs Date Time Temp Pulse Resp B/P (MAP) Pulse Ox O2 Delivery O2 Flow Rate FiO2 08/11/20 07:00 98.3 88 16 114/80 (91) 98 Room Air 98.3 I & O 08/10/20 08/10/20 08/11/20 15:00 23:00 07:00 Intake Total 1000 ml 120 ml Balance 1000 ml 120 ml Physical Exam General: Alert, Oriented X3, Cooperative Heart: Regular rate, Normal S1, Normal S2 Abdomen: Soft, Other (TTP RUQ and epigastric ) Extremities: No clubbing, No cyanosis Skin: No rashes, No breakdown Labs Labs: Laboratory Tests Test 08/10/20 17:16 08/10/20 17:17 08/10/20 17:30 08/10/20 18:50 Urine Collection Type Unknown Urine Color Yellow Urine Clarity Clear Urine pH 6.0 (<5.0-8.0) Urine Specific [place] 1.020 (1.000-1.030) Urine Protein Negative mg/dL (NEG-TRACE) Urine Glucose (UA) Negative mg/dL (NEG) Urine Ketones (Stick) Negative mg/dL (NEG) Urine Blood Negative (NEG) Urine Nitrite Negative (NEG) Urine Bilirubin Negative (NEG) Urine Urobilinogen Dipstick 0.2 mg/dL (0.2 mg/dL) Urine Leukocyte Esterase Small (NEG) Urine RBC 1-2 /HPF (0-2) Urine WBC 5-10 /HPF (0-4) Urine Squamous Epithelial Cells Mod /LPF Urine Bacteria Moderate /HPF (0-FEW) Urine Mucus Marked /LPF Bedside Urine HCG, Qualitative Hcg negative (Negative) White Blood Count 7.2 x10^3/uL (4.0-11.0) Red Blood Count 4.61 x10^6/uL (3.50-5.40) Hemoglobin 12.5 g/dL (12.0-15.5) Hematocrit 37.6 % (36.0-47.0) Mean Corpuscular Volume 82 fL (79-100) Mean Corpuscular Hemoglobin 27 pg (25-35) Mean Corpuscular Hemoglobin Concent 33 g/dL (31-37) Red Cell Distribution Width 13.3 % (11.5-14.5) Platelet Count 300 x10^3/uL (140-400) Neutrophils (%) (Auto) 63 % (31-73) Lymphocytes (%) (Auto) 30 % (24-48) Monocytes (%) (Auto) 5 % (0-9) Eosinophils (%) (Auto) 1 % (0-3) Basophils (%) (Auto) 1 % (0-3) Neutrophils # (Auto) 4.5 x10^3/uL (1.8-7.7) Lymphocytes # (Auto) 2.2 x10^3/uL (1.0-4.8) Monocytes # (Auto) 0.4 x10^3/uL (0.0-1.1) Eosinophils # (Auto) 0.1 x10^3/uL (0.0-0.7) Basophils # (Auto) 0.0 x10^3/uL (0.0-0.2) Sodium Level 140 mmol/L (136-145) Potassium Level 3.5 mmol/L (3.5-5.1) Chloride Level 104 mmol/L (98-107) Carbon Dioxide Level 28 mmol/L (21-32) Anion Gap 8 (6-14) Blood Urea Nitrogen 9 mg/dL (7-20) Creatinine 0.7 mg/dL (0.6-1.0) Estimated GFR (Cockcroft-Gault) 96.4 BUN/Creatinine Ratio 13 (6-20) Glucose Level 87 mg/dL (70-99) Calcium Level 9.8 mg/dL (8.5-10.1) Total Bilirubin 0.3 mg/dL (0.2-1.0) Aspartate Amino Transf (AST/SGOT) 26 U/L (15-37) Alanine Aminotransferase (ALT/SGPT) 55 U/L (14-59) Alkaline Phosphatase 88 U/L (46-116) Total Protein 8.3 g/dL (6.4-8.2) Albumin 4.0 g/dL (3.4-5.0) Albumin/Globulin Ratio 0.9 (1.0-1.7) Lipase 135 U/L (73-393) SARS-CoV-2 Antigen (Rapid) Negative (NEGATIVE) Test 08/11/20 08:10 White Blood Count 6.8 x10^3/uL (4.0-11.0) Red Blood Count 4.47 x10^6/uL (3.50-5.40) Hemoglobin 12.1 g/dL (12.0-15.5) Hematocrit 36.5 % (36.0-47.0) Mean Corpuscular Volume 82 fL (79-100) Mean Corpuscular Hemoglobin 27 pg (25-35) Mean Corpuscular Hemoglobin Concent 33 g/dL (31-37) Red Cell Distribution Width 13.4 % (11.5-14.5) Platelet Count 295 x10^3/uL (140-400) Neutrophils (%) (Auto) 80 % (31-73) Lymphocytes (%) (Auto) 17 % (24-48) Monocytes (%) (Auto) 3 % (0-9) Eosinophils (%) (Auto) 0 % (0-3) Basophils (%) (Auto) 0 % (0-3) Neutrophils # (Auto) 5.4 x10^3/uL (1.8-7.7) Lymphocytes # (Auto) 1.1 x10^3/uL (1.0-4.8) Monocytes # (Auto) 0.2 x10^3/uL (0.0-1.1) Eosinophils # (Auto) 0.0 x10^3/uL (0.0-0.7) Basophils # (Auto) 0.0 x10^3/uL (0.0-0.2) Sodium Level 142 mmol/L (136-145) Potassium Level 3.5 mmol/L (3.5-5.1) Chloride Level 106 mmol/L (98-107) Carbon Dioxide Level 25 mmol/L (21-32) Anion Gap 11 (6-14) Blood Urea Nitrogen 8 mg/dL (7-20) Creatinine 0.6 mg/dL (0.6-1.0) Estimated GFR (Cockcroft-Gault) 115.1 Glucose Level 93 mg/dL (70-99) Calcium Level 9.1 mg/dL (8.5-10.1) Phosphorus Level 3.4 mg/dL (2.6-4.7) Magnesium Level 2.2 mg/dL (1.8-2.4) Review of Systems Review of Systems: pt denies change of vision or change in mentation Assessment and Plan Assessmemt and Plan Problems Medical Problems: (1) Cholecystitis Status: Acute 08/11/2020 Assessment - Cholecystitis Plan - trend labs - Cholecystetcomy tomorrow - appreciate input from subspecialists - follow up with GI - continue IV abx Comment Review of Relevant I have reviewed the following items maricruz (where applicable) has been applied. Medications: Current Medications Medications (Trade) Dose Ordered Sig/Monet Route PRN Reason Start Time Stop Time Status Last Admin Dose Admin Sodium Chloride 1,000 ml @ 1,000 mls/hr Q1H IV 08/10/20 17:45 08/10/20 18:44 DC 08/10/20 17:49 Fentanyl Citrate (Fentanyl 2ml Vial) 50 mcg 1X ONCE IVP 08/10/20 17:45 08/10/20 17:46 DC 08/10/20 17:49 Ondansetron HCl (Zofran) 4 mg 1X ONCE IVP 08/10/20 17:45 08/10/20 17:46 DC 08/10/20 17:49 Famotidine (Pepcid Vial) 20 mg 1X ONCE IVP 08/10/20 17:45 08/10/20 17:46 DC 08/10/20 17:49 Cefazolin Sodium/ Dextrose 50 ml @ 100 mls/hr 1X ONCE IV 08/10/20 18:30 08/10/20 18:59 DC 08/10/20 18:46 Sodium Chloride 1,000 ml @ 125 mls/hr Q8H IV 08/10/20 18:45 08/11/20 18:44 08/11/20 02:45 Ondansetron HCl (Zofran) 4 mg PRN Q6HRS PRN IVP NAUSEA/VOMITING 08/10/20 19:00 08/11/20 04:10 Enoxaparin Sodium (Lovenox 40mg Syringe) 40 mg Q24H SQ 08/10/20 19:00 08/11/20 09:28 DC 08/10/20 21:09 Justifications for Admission Abdominal Pain Indications Is patient in severe pain?: Yes Justification for admission: Patient has severe pain that requires (parenteral analgesic-please state analgesics and route) at least every 4 hours necessitating inpatient level of care. Is NPO status required?: Yes Justification for admission: Patient may require to be NPO for greater 24hours making it medically necessary to manage patient as inpatient. Other Justification BEVERLY SCHMITZ III DO Aug 11, 2020 11:05
[2020-08-11] MEDS: PIPERACILLIN/TAZOBACTAM 3.375 GM in IV NORMAL SALINE 50ML 50 ML IV SCH ×2 (11:48→18:09)
[2020-08-11 15:00] VITALS: BP 115/68
[2020-08-11 19:00] VITALS: BP 115/68
[2020-08-11 23:00] VITALS: BP 111/62
[2020-08-12] VITALS (10 sets, daily range): BP systolic 95–114; BP diastolic 51–75
[2020-08-12] MEDS: PIPERACILLIN/TAZOBACTAM 3.375 GM in IV NORMAL SALINE 50ML 50 ML IV SCH ×4 (00:08→18:11)
[2020-08-12] MEDS ORDERED: PROCHLORPERAZINE 10 MG/2 ML VIAL. IV PRN (07:00)
[2020-08-12] MEDS ORDERED: fentaNYL PF VIAL 100 MCG/2 ML VIAL IV PRN ×2 (07:00)
[2020-08-12] MEDS ORDERED: IV RINGERS,LACTATED 1000ML 1,000 ML IV SCH (07:00)
--- NOTE | 2020-08-12 09:24 | PDOC ---
[employer] PROGRESS NOTE Date of Service DOS: DATE: 08/12/20 TIME: 09:18 Chief Complaint Chief Complaint Cholecystitis History of Present Illness History of Present Illness 08/11/2020 - Pt seen and examined at bedside - Discussed findings of pt's imaging - Spoke to pt regarding surgery planned for tomorrow - reviewed chart - discussed pt care with RN 08/12/20 - Pt seen and examined. - Spoke to pt regarding surgery for today. - Dm RN. - Reviewed chart. Vitals/I&O Vitals/I&O: Vital Signs Date Time Temp Pulse Resp B/P (MAP) Pulse Ox O2 Delivery O2 Flow Rate FiO2 08/12/20 08:00 Room Air 08/12/20 07:00 98.4 82 20 114/71 (85) 98 98.4 I & O 08/11/20 08/11/20 08/12/20 15:00 23:00 07:00 Intake Total 1200 ml Balance 1200 ml Physical Exam General: Alert, Oriented X3, Cooperative Heart: Regular rate, Normal S1, Normal S2 Lungs: Clear Abdomen: Normal bowel sounds, Soft, Other (TTP RUQ and epigastric ) Extremities: No clubbing, No cyanosis, No tenderness/swelling Skin: No rashes, No breakdown Review of Systems Review of Systems: No headaches or dizziness. No rashes or itching. No SOA or wheezing. Assessment and Plan Assessmemt and Plan Problems Medical Problems: (1) Cholecystitis Status: Acute Assessment: 1. Cholecystitis Plan: 1. Plan for surgery today 2. Cont IV antibiotics 3. PRN pain meds 4. PRN Zofran for nausea 5. Code full 5. Probable discharge today or tomorrow Comment Review of Relevant I have reviewed the following items maricruz (where applicable) has been applied. Medications: Current Medications Medications (Trade) Dose Ordered Sig/Monet Route PRN Reason Start Time Stop Time Status Last Admin Dose Admin Piperacillin Sod/ Tazobactam Sod 3.375 gm/Sodium Chloride 50 ml @ 100 mls/hr Q6HRS IV 08/11/20 12:00 08/12/20 06:15 Justifications for Admission Abdominal Pain Indications Is patient in severe pain?: Yes Justification for admission: Patient has severe pain that requires (parenteral analgesic-please state analgesics and route) at least every 4 hours necessitating inpatient level of care. Is NPO status required?: Yes Justification for admission: Patient may require to be NPO for greater 24hours making it medically necessary to manage patient as inpatient. Other Justification BEVERLY SCHMITZ III DO Aug 12, 2020 09:23
[2020-08-12] MEDS ORDERED: MIDAZOLAM HCL/PF 2 MG/2 ML VIAL. ONE (09:38)
[2020-08-12] MEDS ORDERED: ONDANSETRON PF 4 MG/2 ML VIAL. ONE (09:38)
[2020-08-12] MEDS ORDERED: ROCURONIUM 50 MG/5 ML VIAL. ONE (09:38)
[2020-08-12] MEDS ORDERED: LIDOCAINE 2% PF 5 ML VIAL. ONE (09:38)
[2020-08-12] MEDS ORDERED: fentaNYL PF VIAL 100 MCG/2 ML VIAL ONE ×2 (09:38→11:31)
[2020-08-12] MEDS ORDERED: DEXAMETHASONE SOD PHOS 4 MG/ML VIAL ONE (09:38)
[2020-08-12] MEDS ORDERED: PROPOFOL 10 MG/ML (20ML) VIAL. IV ONE (09:38)
[2020-08-12] MEDS ORDERED: BUPIVACAINE-EPI 0.25% 30 ML VIAL KIT. ONE (10:58)
[2020-08-12] MEDS ORDERED: SEVOFLURANE 31 TO 60 MINUTES. IH ONE (12:01)
--- NOTE | 2020-08-12 12:10 | PDOC4 ---
Operative Note Operative Note Date: August 12, 2020 at 1207 Preoperative diagnosis: Acute cholecystitis Postoperative diagnosis: Same Procedure: Laparoscopic cholecystectomy Surgeon: Markie Specimen: Gallbladder Dictation: Patient is a 35-year-old female admitted to the hospital with right upper quadrant abdominal pain and ultrasound showing gallstones with thickened gallbladder wall. Procedure of laparoscopic cholecystectomy was explained to the patient detail through an spray painter helper all risk benefits were also discussed including bleeding infection injury to intra-abdominal contents possible necess itating further open operations alternatives to this procedure also discussed with the patient who seemed to understand and gave a verbal written consent to have the procedure performed. Patient was taken to the operating room placed the supine position general anesthesia was initiated once patient was sleeping intubated her abdomen was prepped and draped usual sterile fashion using ChloraPrep. Area just below the umbilicus was injected with quarter percent Marcaine with epinephrine incision was made 11 blade scalpel a varies needle was placed within the abdomen creating pneumoperitoneum once this complete the millimeter port was placed and a 5 mm camera was placed within the abdomen no other abnormalities were noted. 5 mm port was placed in the epigastrium a 5 mm port was placed in the right midabdomen a 5 mm port was placed in the right lateral abdomen. The dome of the gallbladder is grasped retracted cephalad the infundibular gallbladder is grasped tract laterally there is quite a bit of inflammatory tissue in the triangle. Adherent tissues were taken down with blunt dissection the cystic duct was visualized coming off of the gallbladder but going into this very dense inflammatory tissue a safe area next to the gallbladder was dissected around the cystic duct. The cystic duct was quite dilated and the 5 mm epigastric port was changed out to a 11 mm port so that a 10 mm hemolock clip could be used to clip the cystic duct. The cystic duct was then transected the cystic artery was then visualized and clipped and transected. The gallbladder was taken off the liver with hook electrocautery placed in Endo Catch bag and removed from the umbilicus right upper quadrant is irrigated and suctioned dry hemostasis deemed be appropriate the pneumoperitoneum was reduced all ports were removed the fascial defect at the umbilicus was closed with a [id number] 0 Vicryl suture and the skin was reapproximated all port sites for subicular Monocryl Mastisol Steri-Strips and island dressings were applied. Patient was awakened and extubated operating room taken to recovery in stable condition all sponge instrument needle counts listed as correct estimated blood loss 30 mL. JUAN PABLO LAURENT MD Aug 12, 2020 12:10
[2020-08-12] MEDS ORDERED: MORPHINE SULFATE 2 MG/ML VIAL. ONE (12:31)
[2020-08-12] MEDS: ONDANSETRON PF 4 MG/2 ML VIAL. IVP PRN (12:34)
[2020-08-12] MEDS: MORPHINE SULFATE 2 MG/ML VIAL. IV PRN ×2 (12:34→12:46)
[2020-08-12] MEDS ORDERED: HYDROmorphone 2 MG/ML VIAL ONE (13:00)
[2020-08-12] MEDS: HYDROmorphone 2 MG/ML VIAL IV PRN ×2 (13:01→13:16)
[2020-08-12] MEDS: HYDROcodone/APAP 5/325MG 1 TAB TABLET PO PRN (20:39)
[2020-08-13] MEDS: PIPERACILLIN/TAZOBACTAM 3.375 GM in IV NORMAL SALINE 50ML 50 ML IV SCH ×3 (00:06→12:00)
[2020-08-13] MEDS: HYDROcodone/APAP 5/325MG 1 TAB TABLET PO PRN ×2 (02:43→08:15)
[2020-08-13 03:00] VITALS: BP 97/56
[2020-08-13 07:00] VITALS: BP 98/59
--- NOTE | 2020-08-13 08:40 | PDOC ---
SURGICAL PROGRESS NOTE DATE: 08/13/20 TIME: 08:39 Subjective a little pain eating breakfast Vital Signs Vital Signs Date Time Temp Pulse Resp B/P (MAP) Pulse Ox O2 Delivery O2 Flow Rate FiO2 08/13/20 08:15 Room Air 08/13/20 07:00 98.0 75 18 98/59 (72) 95 98.0 08/12/20 12:53 5 I&O Intake and Output 08/13/20 07:00 Intake Total 1120 ml Output Total 30 ml Balance 1090 ml Intake Oral 520 ml IV Total 600 ml Output Estimated Blood Loss 30 ml # Voids 5 General: Alert, Oriented X3, Cooperative Abdomen: Soft, Other (lap dressings dry) Problem List Problems Medical Problems: (1) Cholecystitis Status: Acute Assessment/Plan s/p rachelle can dc per primary FU 2 weeks Justicifation of Admission Dx: Justifications for Admission: Justification of Admission Dx: Yes Comments: cholecystitis ALLEN ARMAS APRN Aug 13, 2020 08:40
[2020-08-13] MEDS ORDERED: HYDR-2761 PO (08:41)
--- NOTE | 2020-08-13 09:27 | NUR ---
SW following. Discussed with RN, pt from home with , room air, low fat diet, COVID-19 negative. Pt had surgery 08/12/20. RN anticipates pt will likely discharge home today. Med Assist following for self pay status. SW will continue to follow.
[2020-08-13 11:00] VITALS: BP 104/61
--- NOTE | 2020-08-13 11:27 | PDOC ---
[employer] PROGRESS NOTE Date of Service DOS: DATE: 08/13/20 TIME: 11:23 Chief Complaint Chief Complaint Cholecystitis History of Present Illness History of Present Illness 08/11/2020 - Pt seen and examined at bedside - Discussed findings of pt's imaging - Spoke to pt regarding surgery planned for tomorrow - reviewed chart - discussed pt care with RN 08/12/20 - Pt seen and examined. - Spoke to pt regarding surgery for today. - Dm RN. - Reviewed chart. 08/13/20 - Pt seen and examined at bedside. - Dm RN and case manger. - Chart reviewed. Vitals/I&O Vitals/I&O: Vital Signs Date Time Temp Pulse Resp B/P (MAP) Pulse Ox O2 Delivery O2 Flow Rate FiO2 08/13/20 09:40 Room Air 08/13/20 07:45 5.0 08/13/20 07:00 98.0 75 18 98/59 (72) 95 98.0 I & O 08/12/20 08/12/20 08/13/20 15:00 23:00 07:00 Intake Total 670 ml 450 ml Output Total 30 ml Balance 640 ml 450 ml Physical Exam General: Alert, Oriented X3, Cooperative, No acute distress Heart: Regular rate, Normal S1, Normal S2 Lungs: Clear Abdomen: Normal bowel sounds, Soft, No tenderness, Other (lap dressings dry) Extremities: No clubbing, No cyanosis, No tenderness/swelling Skin: No rashes, No breakdown Review of Systems Review of Systems: No rashes or itching. No headache or dizziness. No SOA or wheezing. Assessment and Plan Assessmemt and Plan Problems Medical Problems: (1) Cholecystitis Status: Acute Assessment: 1. Acute cholecystitis Plan: 1. Pt is post op day #1 2. Cont soft foods and low fat diet 3. CDI dressing 4. Wound care 5. Pain meds PRN 6. Appreciate specialist input 7. Full code 8. Probable discharge today Comment Review of Relevant I have reviewed the following items maricruz (where applicable) has been applied. Medications: Current Medications Medications (Trade) Dose Ordered Sig/Monet Route PRN Reason Start Time Stop Time Status Last Admin Dose Admin Acetaminophen/ Hydrocodone Bitart (Lortab 5/325) 1 tab PRN Q4HRS PRN PO MODERATE-SEVERE PAIN 08/12/20 19:45 08/13/20 08:15 Justifications for Admission Abdominal Pain Indications Is patient in severe pain?: Yes Justification for admission: Patient has severe pain that requires (parenteral analgesic-please state analgesics and route) at least every 4 hours necessitating inpatient level of care. Is NPO status required?: Yes Justification for admission: Patient may require to be NPO for greater 24hours making it medically necessary to manage patient as inpatient. Other Justification BEVERLY SCHMITZ III DO Aug 13, 2020 11:27
--- NOTE | 2020-08-13 13:46 | DS ---
DATE OF DISCHARGE: 08/13/2020 ADMISSION DIAGNOSIS: Cholecystitis. DISCHARGE DIAGNOSES: Resolving cholecystitis, postop day #1 laparoscopic appendectomy. CONSULTS: John Aden MD HOSPITAL COURSE: The patient is a pleasant middle-aged female who presented with abdominal pain, was noted to have cholecystitis and gallstones. She was admitted. We consulted Dr. Aden. She was taken for laparoscopic cholecystectomy. Today, she is doing well and wants to go home. We plan to discharge. DISPOSITION: Home. ACTIVITY: As tolerated. DIET: Low sodium. MEDICATIONS: Please see the MRAD. TOTAL TIME: 32 minutes. SHARONAL Dean SCHMITZ DO DR: BROOK/roula JOB#: [id number] / [id number]
--- NOTE | 2020-08-13 14:25 | NUR ---
Patient discharged home today with self care via wheelchair accompany by aid and spouse. Patient is stable, IV removed, prescription, and discharge paperwork given to patient. Patient and spouse verbalized understanding of follow up and discharge instruction.
== END 2020-08-13 15:18 | disposition home or self-care (01) | DRG 419 ==
LOC: ER 17:02 → 4 NORTH 18:41
PROVIDERS: ADMIT Internal Medicine; ATTEND Internal Medicine
PROC: 0FT44ZZ Resection of Gallbladder, Percutaneous Endoscopic Approach (ICD-10-PCS; principal; 2020-08-12 11:00)
DX: K81.0 Acute cholecystitis (principal); K76.0 Fatty (change of) liver, not elsewhere classified; K59.00 Constipation, unspecified; E66.9 Obesity, unspecified; F41.9 Anxiety disorder, unspecified; Z20.822 Contact with and (suspected) exposure to COVID-19; Z88.8 Allergy status to other drugs, medicaments and biological substances; Z68.35 Body mass index [BMI] 35.0-35.9, adult
CPT/HCPCS: 36415; 71045; 74176; 76705; 80048; 80053; 81001; 81025; 83690; 83735; 84100; 85025; 87086; 87426; 88304; 96361; 96365; 96375; 99285; J0690; J1100; J1170; J1650; J2250; J2270; J2405; J2543; J2704; J3010; J3490; J7030; J7120; U0003; G0378